=== PATIENT | female | born 1945 | race Two or more races ===

== ENCOUNTER 2024-09-12 13:00 | Inpatient (IN) | payer OTHER ==
[~2024-09-12] VITALS: Ht 121.9 cm; Wt 92.5 kg
[2024-09-12] MEDS ORDERED: ATORVASTATIN CA20 MG PO (14:52)
[2024-09-12] MEDS ORDERED: LOSARTAN POTASS25 MG PO (14:52)
[2024-09-12] MEDS ORDERED: SYNTHROID175 MCG PO (14:52)
--- NOTE | 2024-09-12 14:53 | NUR ---
PTE REFIEFE DOLOR DE PECHO Y DIFICULTAD AL RESPIRAR. SE LE LILLIAM S/V Y SE LE REALIZA EKG LA CUAL SE LE PRESENTA A LA SE ACOMODA EN LA UNIDAD DE CHEST PAIN,CONCETADA A MONITOR CARDIACO.
[2024-09-12] MEDS ORDERED: MORPHINE SULFATE 2 MG/ML CARTRIDGE IV ONE (15:00)
[2024-09-12] MEDS ORDERED: 0.9 % SODIUM CHLORIDE 1,000 ML IV ONE (15:00)
[2024-09-12] MEDS ORDERED: ASPIRIN 81 MG TABLET.EC PO ONE (15:00)
[2024-09-12] MEDS ORDERED: FAMOtidine 10 MG/ML (4ML VIAL) IV ONE (15:00)
[2024-09-12 15:24] LABS: HEMOGLOBIN 13.9 g/dL (12.0-15.00); MEAN CORPUSCULAR HEMOGLOBIN 29.5 pg (27.00-32.0); PLATELET COUNT 167 K/uL (150-450); RED BLOOD COUNT 4.71 M/uL (4.00-6.00); RED CELL DISTRIBUTION WIDTH 14.7 % (11.5-14.5)
--- NOTE | 2024-09-12 15:35 | NUR ---
SE ORIENTA PTE SOBRE TX A SEGUIR, LA MISMA REFIERE ENTENDER. SE LILLIAM MUESTRA DE LAB, SE CANALIZA X2 Y SE ADMINISTRA MED DEMAR ORDEN MEDICA.
[2024-09-12 15:41] LABS: D DIMER 0.28 MG/L
[2024-09-12 15:54] LABS: ALBUMIN 3.6 gm/dL (3.4-5.0); BILIRUBIN TOTAL 0.4 mg/dL (0.3-1.2); CALCIUM 9.2 mg/dL (8.5-10.1); CKMB 1.8 NG/ML (0.5-3.6); CREATININE SERUM 1.42 mg/dL (0.55-1.02); GFR 35.78; GLOBULINA 3.8 G/DL (2.4-3.5); POTASSIUM 4.6 mEq/L (3.5-5.1); TOTAL PROTEIN 7.4 gm/dL (6.4-8.2)
[2024-09-12 16:31] LABS: ABG PH 7.397 (7.35-7.45); ABG PO2 74.7 mmHg (80-100); ABG pCO2 42.6 mmHg (35-45); BASE EXCESS 0.6 mmol/l; BICARBONATE 25.6 mmol/l (23-25); SaO2 94.8 %; Tco2 26.9 mmol/l
[2024-09-12 16:36] LABS: URINE APPEARANCE Clear; URINE BILIRRUBIN Negative (NEGATIVE); URINE BLOOD Negative; URINE COLOR Yellow; URINE KETONE Negative (NEGATIVE); URINE LEUKOCYTE Moderate; URINE NITRATE Negative; URINE PROTEIN Negative (NEGATIVE); URINE UROBILINOGEN 0.2 E.U./dl
[2024-09-12 16:42] LABS: URINE BACTERIA 1358.1 uL (0.0-1933); URINE EPITHELIAL CELLS 21.9 uL (0.0-38.8); URINE RBC 4.4 uL (0.0-20.8); URINE WBC 435.9 uL (0.0-23.2)
[2024-09-12 16:44] LABS: URINE CAST 0.15 uL (0.0-1.40); URINE GLUCOSE >=1000 MG/DL (NEGATIVE)
[2024-09-12 16:56] LABS: INR 1.03; PARTIAL THROMBOPLASTIN TIME 25.1 SECONDS (22.0-34.0); PROTHROMBIN TIME 11.2 SECONDS (9.0-11.5)
[2024-09-12 17:24] LABS: allen test SATISFACTORY; o2 21 %; puncture site RADIAL RIGHT
[2024-09-12] MEDS ORDERED: INSULIN LISPRO 1,000 UNIT/10 ML UNITS SUBCUTANEO PRN (19:00)
[2024-09-12] MEDS ORDERED: DEXTROSE 50 % IN WATER 0.5 G/ML DISP.SYRIN IV PRN (19:00)
[2024-09-12] MEDS ORDERED: ONDANSETRON HCL 4 MG in DEXTROSE 5 % IN WATER 50 ML IV PRN (19:15)
[2024-09-12] MEDS ORDERED: MORPHINE SULFATE 2 MG/ML CARTRIDGE IV PRN (19:15)
[2024-09-12] MEDS ORDERED: ENALAPRILAT DIHYDRATE 1.25 MG/ML VIAL IV PRN (19:15)
[2024-09-12] MEDS ORDERED: ACETAMINOPHEN 500 MG GEL..CAP PO PRN (19:15)
[2024-09-12] MEDS ORDERED: IBUprofen 600 MG TABLET PO SCH (19:20)
[2024-09-12] MEDS ORDERED: NITROGLYCERIN IN 5 % DEXTROSE 250 ML IV SCH (19:22)
[2024-09-12] MEDS ORDERED: ATORVASTATIN CALCIUM 40 MG TABLET PO SCH (19:30)
[2024-09-12 19:42] VITALS: BP 172/64; O2SAT 98
[2024-09-12 19:59] VITALS: BP 147/70
[2024-09-12 20:26] LABS: CKMB 1.8 NG/ML (0.5-3.6)
[2024-09-12 20:29] LABS: TSH 0.177 uIU/mL (0.358-3.74)
[2024-09-12] MEDS ORDERED: FAMOTIDINE/PF 20 MG in 0.9 % SODIUM CHLORIDE 8 ML IV PUSH SCH (21:00)
[2024-09-12 22:16] VITALS: BP 135/62; O2SAT 99
[2024-09-12 23:58] VITALS: BP 118/55; O2SAT 98
[2024-09-13 02:57] LABS: CKMB 1.7 NG/ML (0.5-3.6)
[2024-09-13] MEDS ORDERED: LEVOTHYROXINE SODIUM 175 MCG TABLET PO SCH (06:00)
[2024-09-13] MEDS ORDERED: METOPROLOL TARTRATE 25 MG TABLET PO SCH (09:00)
[2024-09-13] MEDS ORDERED: ASPIRIN 81 MG TABLET.EC PO SCH (09:00)
[2024-09-13] MEDS ORDERED: LOSARTAN POTASSIUM 25 MG TABLET PO SCH (09:00)
[2024-09-13] MEDS ORDERED: ENOXAPARIN SODIUM 40 MG/0.4 ML SYRINGE SUBCUTANEO SCH (09:00)
[2024-09-13] MEDS ORDERED: ATORVASTATIN CALCIUM 20 MG TABLET PO SCH (09:00)
[2024-09-13 09:11] VITALS: BP 171/77
[2024-09-13 10:09] LABS: URINE APPEARANCE Clear; URINE BILIRRUBIN Negative (NEGATIVE); URINE BLOOD Negative; URINE COLOR Yellow; URINE KETONE Negative (NEGATIVE); URINE LEUKOCYTE Trace; URINE NITRATE Negative; URINE PROTEIN Negative (NEGATIVE); URINE UROBILINOGEN 0.2 E.U./dl
[2024-09-13 10:16] LABS: URINE BACTERIA 30.2 uL (0.0-1933); URINE RBC 3.9 uL (0.0-20.8); URINE WBC 5.6 uL (0.0-23.2)
[2024-09-13 10:30] LABS: URINE GLUCOSE >=1000 MG/DL (NEGATIVE)
[2024-09-13 12:06] LABS: HEMATOCRIT 38.6 % (36.0-45.00); HEMOGLOBIN 13.3 g/dL (12.0-15.00); MEAN CELL VOLUME 87.3 fL (80.00-100.00); MEAN CORPUSCULAR HEMOGLOBIN 30.1 pg (27.00-32.0); MEAN CORPUSCULAR HGB CONC 34.4 g/dl (32.0-36.0); PLATELET COUNT 157 K/uL (150-450); RED BLOOD COUNT 4.42 M/uL (4.00-6.00); RED CELL DISTRIBUTION WIDTH 14.4 % (11.5-14.5)
[2024-09-13 12:13] LABS: INR 1.05; PARTIAL THROMBOPLASTIN TIME 26.2 SECONDS (22.0-34.0); PROTHROMBIN TIME 11.4 SECONDS (9.0-11.5)
[2024-09-13 12:15] LABS: ERYTHROCYTE SEDIMENTATION RATE 64 mm/hr
[2024-09-13 12:44] LABS: ALBUMIN 3.4 gm/dL (3.4-5.0); ALKALINE PHOSPHATASE 167 U/L (50-136); ALT/SGPT 52 U/L (12-78); ANION GAP 11 (10.0-20.0); AST/SGOT 27 U/L (15-37); BILIRUBIN TOTAL 0.63 mg/dL (0.3-1.2); BILIRUBIN,CONJUGATED 0.17 mg/dL (0.0-0.2); BILIRUBIN,UNCONJUGATED 0.46 mg/dL (0.0-0.6); BLOOD UREA NITROGEN 24 mg/dL (7-18); BUN CREA RATIO 18 (7.0-25.0); CARBON DIOXIDE 25 mEq/L (21-32); CHLORIDE 108 mmol/L (98-107); CHOL HDL RATIO 3.1 (0-5.0); CHOLESTEROL 156 mg/dL (0-200); CREATININE SERUM 1.35 mg/dL (0.55-1.02); GFR 37.93; GLOBULINA 3.4 G/DL (2.4-3.5); GLUCOSE FASTING 125 mg/dL (65-100); HDL 51 mg/dl (40-60); LDL 83 mg/dl (0-130); OSMOLALITY SERUM 285 MOSM/KG (275-295); POTASSIUM 4.45 mEq/L (3.5-5.1); SODIUM 140 mmol/L (136-145); TOTAL PROTEIN 6.8 gm/dL (6.4-8.2); TRIGLYCERIDES 110 mg/dL (0-150); VLDL 22 (0-39)
[2024-09-13 12:45] LABS: CKMB 2.8 NG/ML (0.5-3.6)
[2024-09-13 12:52] LABS: C-REACTIVE PROTEIN < 0.29 MG/DL (0.00-0.29)
[2024-09-13] MEDS ORDERED: CLOPIDOGREL BISULFATE 75 MG TABLET PO NR (16:10)
[2024-09-13] MEDS ORDERED: ASPIRIN 81 MG TABLET.EC PO NR (16:10)
[2024-09-13 16:18] VITALS: BP 147/81
[2024-09-13] MEDS ORDERED: GABAPENTIN 300 MG CAPSULE PO SCH (17:00)
[2024-09-14] MEDS ORDERED: ISOSORBIDE DINITRATE 20 MG TABLET PO SCH (01:00)
[2024-09-14 03:42] VITALS: BP 156/73; O2SAT 97
[2024-09-14] MEDS ORDERED: LOSARTAN POTASSIUM 25 MG TABLET PO SCH (09:00)
[2024-09-14] MEDS ORDERED: ASPIRIN 81 MG TABLET.EC PO SCH (09:00)
[2024-09-14] MEDS ORDERED: CLOPIDOGREL BISULFATE 75 MG TABLET PO SCH (09:00)
[2024-09-14 09:01] VITALS: BP 148/79
[2024-09-14 16:42] VITALS: BP 169/77
[2024-09-14] MEDS ORDERED: ISOSORBIDE DINITRATE 10 MG TABLET PO SCH (17:00)
[2024-09-15 02:27] VITALS: BP 43/72; O2SAT 99
[2024-09-15] MEDS ORDERED: ISOSORBIDE MONONITRATE 30 MG TABLET PO SCH (09:00)
== END 2024-09-15 13:46 | disposition home or self-care (01) | DRG 315 ==
LOC: ER 13:02 → MEDI 19:51
PROVIDERS: General Practice; ADMIT Internal Medicine; ATTEND Internal Medicine
PROC: B24BYZZ Ultrasonography of Heart with Aorta using Other Contrast (ICD-10-PCS; principal; 2024-09-13)
PROC: 4A12X4Z Monitoring of Cardiac Electrical Activity, External Approach (ICD-10-PCS; 2024-09-13)
DX: I31.9 Disease of pericardium, unspecified (principal); I24.9 Acute ischemic heart disease, unspecified; R07.9 Chest pain, unspecified; I35.0 Nonrheumatic aortic (valve) stenosis; N18.30 Chronic kidney disease, stage 3 unspecified